=== PATIENT | female | born 1965 | race Caucasian/White ===

== ENCOUNTER 2018-11-10 09:30 | Inpatient (IN) | payer OTHER, SELFPAY ==
[2018-11-10] VITALS (14 sets, daily range): BP systolic 96–126; BP diastolic 53–77; PULSE 87–125; RESP 16–21; TEMP 36.4–38.1; O2SAT 95–109; BMI 32.4
--- NOTE | 2018-11-10 | PATH_ITS ---
[facility] Accession Number: [id number] . 01 Material submitted: . appendix - APPENDIX . 02 Diagnosis: Appendix, Appendectomy: Acute suppurative appendicitis with serositis. No evidence of dysplasia or malignancy. [facility] . 02 Electronically signed: . Olga Erazo MD, Pathologist NPI- [id number] . 01 Gross description: . Received in formalin, labeled appendix, is an appendix in two pieces (length-6.8 cm, diameter-up to 0.9 cm) with sánchez-pink smooth shiny partially exudate-covered serosa and attached mesoappendix (up to 1.6 cm thick). The resection margin is received stapled. The lumen contains pale sánchez solid-soft material. The wall is up to 0.4 cm thick. No nodules, masses or lesions are identified. The resection margin is inked black. Section code: (A1) resection margin en face and three additional serial sections; (A2) one-half of the bivalved tip. ([id number]) /MRV . 02 Pathologist provided ICD-10: K35.80 . 02 CPT . 057472 Performed at: 01 [facility] [address], [place], [place] [id number] MD Chuy Figueroa MD Phone: [phone] Performed at: 02 [facility] [address] [place], [place] [id number] MD Olga Erazo MD Phone: [phone]
--- NOTE | 2018-11-10 10:11 | ED_ITS ---
HPI - Abdominal Pain General Chief Complaint: Abdominal Pain Stated Complaint: Pain in rt side and groin Time Seen by Provider: 11/10/18 09:48 Source: patient Mode of arrival: ambulatory Limitations: no limitations History of Present Illness HPI narrative: Patient complains of low abdominal pain which is worsened since yesterday and has localized to the right lower quadrant. Patient denies nausea or vomiting. She states that she does not sleep well last night because of the discomfort. She states she thinks she should be hungry, but does not feel an urge to eat, because of the pain. No fevers or chills. No dysuria. No hematuria. No back pain. Patient has no history of any surgeries on her abdomen. No history of kidney stones. Patient denies any chest symptoms. No sore throat. No other complaints at this time. Related Data Home Medications Medication Instructions Recorded Confirmed multivitamin 1 tab PO DAILY 11/10/18 11/10/18 phentermine 30 mg PO DAILY 11/10/18 11/10/18 Allergies Allergy/AdvReac Type Severity Reaction Status Date / Time No Known Drug Allergies Allergy Verified 11/10/18 09:46 Review of Systems Constitutional Denies chills, Denies fever(s), Denies lethargy and Denies weakness Eyes Denies change in vision, Denies eye discharge, Denies irritation and Denies loss of vision ENT Ears, Nose, Mouth, and Throat: Denies change in voice, Denies neck pain and Denies sore throat Cardiovascular Denies chest pain, Denies irregular heart rhythm, Denies lightheadedness, Denies palpitations, Denies dyspnea, Denies dyspnea on exertion and Denies orthopnea Respiratory Denies cough, Denies dyspnea, Denies dyspnea on exertion and Denies wheezing Gastrointestinal Gastrointestinal: Reports abdominal pain Genitourinary Denies hematuria, Denies flank pain, Denies urinary incontinence and Denies urinary urgency Musculoskeletal Denies neck pain Integumentary/Breasts Denies pruritus, Denies erythema, Denies rash and Denies wounds Neurologic Denies confusion, Denies loss of vision and Denies weakness Psychiatric Denies anxiety, Denies confusion, Denies depression, Denies homicidal ideation and Denies suicidal ideation Endocrine Denies palpitations Hematologic/Lymphatic Denies easy bruising Allergic/Immunologic Denies wheezing [facility] Medical History (Updated 11/10/18 @ 13:02 by Jesus Manuel Mckay MD) Healthy adult (Acute) Obesity (Acute) Surgical History No pertinent past surgical history (Acute) Social History household members: spouse Smoking Status: Never smoker alcohol intake: never Social History household members: spouse Smoking Status: Never smoker alcohol intake: never Exam Initial Vital Signs Initial Vital Signs: Vital Signs Temperature 97.6 F 11/10/18 09:43 Pulse Rate 107 H 11/10/18 09:43 Respiratory Rate 19 11/10/18 09:43 Blood Pressure 126/77 11/10/18 09:43 Pulse Oximetry 100 11/10/18 09:43 Const General: cooperative and well developed Nutritional Appearance: well nourished Orientation: alert, awake, oriented x3 and not confused HENMT Head: normocephalic and atraumatic Ears: external ears normal Nose: external nose normal and No nasal discharge Face and sinus: face symmetric and No dry mucous membranes Mouth: oral mucosae normal and moist mucous membranes Teeth and gingiva: dentition normal Eyes General: appearance normal, both eyes and all related structures Eyelids: eyelids normal Conjunctivae: conjunctivae normal Sclera: sclerae normal Pupils: PERRL EOM: EOM intact bilaterally Neck Neck: normal visual inspection, trachea midline, No lymphadenopathy, No midline deformity and No JVD Lymphatic: No lymphedema Chest Chest: normal inspection of the chest Resp Effort & Inspection: normal respiratory effort, able to speak in complete senten ramesh, no respiratory distress and no use of accessory muscles Auscultation: clear to auscultation bilaterally, no rales, no rhonchi and no wheezes Cardio Rate: regular rate Rhythm: regular rhythm Heart Sounds: no click, no gallops, no murmurs and no rubs Pulses: normal peripheral pulses GI Inspection: non-distended Palpation: soft, no hepatosplenomegaly, No guarding, No pulsatile mass and tender (Significant, right lower quadrant; moderate suprapubic) Auscultation: normal bowel sounds Back/Spine/Pelvis Back: No CVA tenderness Cervical Spine: cervical ROM normal and No pain with cervical ROM Thoracic/Lumbar Spine: thoracic and lumbar spine normal to inspection Skin General: no rashes or lesions noted, No jaundice and No petechiae Neuro General: alert, oriented x3, gait normal and no focal motor deficits Speech: speech normal Extrem General: full ROM, no clubbing, cyanosis or edema, no pedal edema and no calf tenderness Psych Appearance: well kempt Mental Status: mental status grossly normal Attitude: cooperative Thought Content: normal and suicidality Judgment: judgment good Course Course Narrative: Patient was treated symptomatically with Toradol and IV fluids, and was worked up for her right lower quadrant abdominal pain. I suspected appendicitis, based on the patient's history and physical exam findings. Patient's white blood cell count was found to be mildly elevated. I sent her for a CT of the abdomen and pelvis, and this did show acute appendicitis. I spoke with surgery on-call, and he did agree to admit the patient to his service. Patient was given IV Rocephin and Flagyl in the emergency department at surgery's request. Preoperative studies including EKG were unremarkable. Patient was informed of her diagnosis and the plan for surgery admission, and was agreeable. Orders Ordered: ED Orders 11/10/18 12:25 XR chest 1V Urgent EKG-12 Lead Stat 11/10/18 19:51 Education, smoking cessation ONGOING 11/11/18 05:00 Basic Metabolic Panel Routine Magnesium Routine Acetaminophen (Tylenol) 975 mg PO Q6HR [facility] Last Admin: 11/10/18 20:30 Dose: 975 mg Gabapentin (Neurontin) 600 mg PO BEDTIME [facility] Last Admin: 11/10/18 20:30 Dose: 600 mg Heparin Sodium (Porcine) (Heparin) 5,000 unit SUBCUT Q8HR [facility] Lactated Ringer's (Lactated Ringers) 1,000 mls @ 100 mls/hr IV CONT [facility]ACQUI Last Admin: 11/10/18 20:29 Dose: 100 mls/hr Ceftriaxone Sodium/Dextrose (Rocephin) 2 gm in 50 mls @ 100 mls/hr IV Q24H [facility]ACQU[facility] Metronidazole (Flagyl) 500 mg in 100 mls @ 100 mls/hr IV Q8H [facility] Last Admin: 11/10/18 20:30 Dose: 100 mls/hr Lactobacillus Acidophilus (Bacid Caplet) 1 each PO TIDWM JACQUI Morphine Sulfate (Morphine) 4 mg IV Q4HR PRN PRN Reason: Pain, Severe (7-10) Ondansetron HCl (Zofran) 4 mg IV Q8HR PRN PRN Reason: Nausea And Vomiting Oxycodone HCl (Percolone) 5 mg PO Q4HR PRN PRN Reason: Pain, Moderate (4-6) Oxycodone HCl (Percolone) 10 mg PO Q4HR PRN PRN Reason: Pain, Severe (7-10) Polyethylene Glycol (Miralax) 17 gm PO DAILY JAC[facility]I Discontinued Medications Bupivacaine HCl/Epinephrine Bitart (Sensorcaine 0.25% W/ Epi (Pf)) 30 ml INJ NOW ONE Stop: 11/10/18 17:17 Last Admin: 11/10/18 17:18 Dose: 30 ml Fentanyl (Sublimaze) 50 mcg IV Q5MIN PRN PRN Reason: Pain, Moderate (4-6) Hydromorphone HCl (Dilaudid) 0.5 mg IV Q5MIN PRN PRN Reason: Pain, Moderate (4-6) Sodium Chloride (Normal Saline 0.9%) 1,000 mls @ 1,000 mls/hr IV BOLUS ONE Stop: 11/10/18 10:47 Last Infusion: 11/10/18 12:25 Dose: 0 mls/hr Admin: 11/10/18 10:40 Dose: 1,000 mls/hr Metronidazole (Flagyl) 500 mg in 100 mls @ 100 mls/hr IV NOW ONE Stop: 11/10/18 13:24 Last Infusion: 11/10/18 14:49 Dose: 0 mls/hr Admin: 11/10/18 13:00 Dose: 100 mls/hr Ceftriaxone Sodium/Dextrose (Rocephin) 2 gm in 50 mls @ 100 mls/hr IV NOW ONE Stop: 11/10/18 12:59 Last Infusion: 11/10/18 14:08 Dose: 0 mls/hr Admin: 11/10/18 13:01 Dose: 100 mls/hr Sodium Chloride (Normal Saline 0.9%) 1,000 mls @ 1,000 mls/hr IV BOLUS ONE Stop: 11/10/18 15:20 Last Infusion: 11/10/18 15:10 Dose: 0 mls/hr Admin: 11/10/18 14:22 Dose: 1,000 mls/hr Lactated Ringer's (Lactated Ringers) 1,000 mls @ 42 mls/hr IV CONT JACQUI Last Infusion: 11/10/18 18:19 Dose: 0 mls/hr Admin: 11/10/18 16:07 Dose: 42 mls/hr Ketorolac Tromethamine (Toradol) 30 mg IV NOW ONE Stop: 11/10/18 09:49 Last Admin: 11/10/18 10:40 Dose: 30 mg Lorazepam (Ativan) 0.25 mg IV NOW PRN PRN Reason: Anxiety Metoclopramide HCl (Reglan) 10 mg IV NOW PRN PRN Reason: Nausea And Vomiting Morphine Sulfate (Morphine) 2 mg IV NOW ONE Stop: 11/10/18 14:22 Last Admin: 11/10/18 14:22 Dose: 2 mg Ondansetron HCl (Zofran) 4 mg IV NOW ONE Stop: 11/10/18 09:49 Last Admin: 11/10/18 10:41 Dose: 4 mg Ondansetron HCl (Zofran) 4 mg IV NOW PRN PRN Reason: Nausea And Vomiting Oxycodone/Acetaminophen (Percocet 5/325) 1 tab PO Q30MIN PRN PRN Reason: Mild or moderate pain Vital Signs - 8 hr 11/10/18 13:15 11/10/18 14:50 11/10/18 15:35 Temperature 100.6 F H 99.3 F Pulse Rate 120 H 125 H 119 H Respiratory Rate 20 20 18 Blood Pressure 110/66 Blood Pressure [Right Arm] 103/59 L 104/56 L Pulse Oximetry 99 100 100 11/10/18 18:04 11/10/18 18:09 11/10/18 18:14 Temperature 98.7 F Pulse Rate 109 H 111 H 104 H Respiratory Rate 21 21 18 Blood Pressure 112/54 L 105/53 L 104/60 Blood Pressure [Right Arm] Pulse Oximetry 98 98 109 H 11/10/18 18:20 11/10/18 18:35 11/10/18 19:35 Temperature 98.1 F Pulse Rate 103 H 101 H 97 H Respiratory Rate 20 16 17 Blood Pressure 105/62 117/66 105/62 Blood Pressure [Right Arm] Pulse Oximetry 99 98 95 11/10/18 20:00 Temperature 98.1 F Pulse Rate 99 H Respiratory Rate 16 Blood Pressure 106/62 Blood Pressure [Right Arm] Pulse Oximetry 95 MDM - Abdominal Pain Medical Records Attestation: I reviewed the patient's medical records. Lab Data Attestation: I reviewed the patient's lab results. Result diagrams: 11/10/18 10:21 11/10/18 10:21 Lab Results 11/10/18 11/10/18 Range/Units 10:21 10:21 WBC 13.2 H (4.5-11.0) X10^3/uL RBC 4.59 (4.0-5.2) X10^6/uL Hgb 13.3 (12.0-16.0) g/dL Hct 39.1 (36-46) % MCV 85.2 (80-100) fL MCH 29.0 (26-34) PG MCHC 34.0 (30-36) % RDW 13.3 (11.6-14.8) % Plt Count 182 (150-400) X10^3/uL Neut % (Auto) 83.0 H (50-75) % Lymph % (Auto) 7.6 L (25-40) % [place] % (Auto) 8.9 (3-14) % Eos % (Auto) 0.0 L (2-4) % Baso % (Auto) 0.5 (0-2) % Neut # (Auto) 60389 H (3080-8081) /uL Lymph # (Auto) 1000 L (0743-8273) /uL [place] # (Auto) 1200 H (0-900) /uL Eos # (Auto) 0 (0-450) /uL Baso # (Auto) 100 (0-100) /uL Sodium 134 L (137-145) mmol/L Potassium 3.5 (3.4-5.1) mmol/L Chloride 99 (98-107) mmol/L Carbon Dioxide 28 (22-32) mmol/L BUN 9 (7-17) mg/dL Creatinine 0.60 (0.52-1.04) mg/dL Estimated GFR > 60.0 (>60) mL/min BUN/Creatinine Ratio 15.0 (6-22) Glucose 113 H (70-100) mg/dL Calcium 8.8 (8.4-10.2) mg/dL Total Bilirubin 1.0 (0.2-1.3) mg/dL AST 19 (14-36) IU/L ALT 11 (9-52) IU/L Alkaline Phosphatase 33 L (38-126) U/L Total Protein 6.9 (6.3-8.2) g/dL Albumin 4.0 (3.5-5.0) g/dL Globulin 2.9 (1.7-4.1) g/dL Albumin/Globulin Ratio 1.4 (1.0-2.8) Imaging Data CT scan - abdomen: Radiologist's impression: PROCEDURE: CT ABDOMEN PELVIS W CON INDICATIONS: RIGHT LOWER PAIN TECHNIQUE: After the administration of intravenous contrast, 5 mm thick sections acquired from the diaphragm to the symphysis. 5 mm coronal and sagittal reformats were acquired. For radiation dose reduction, the following was used: automated exposure control, adjustment of mA and/or kV according to patient size. COMPARISON: None. FINDINGS: Image quality: Excellent. ABDOMEN: Lung bases: Lung bases are clear. Heart size is normal. Solid organs: Liver is normal in size and enhancement. Gallbladder wall is mildly thickened and hyperemic. Biliary system is non dilated. Pancreas enhances normally. Spleen is normal in size and enhancement. No adrenal nodules. Kidneys demonstrate normal size and enhancement, without hydronephrosis. Peritoneum and bowel: The stomach is within normal limits. There are multiple mildly distended and thickened loops of bowel within the right lower quadrant adjacent to the ileocecal junction. The appendix is distended and fluid-filled and demonstrates moderate surrounding fat stranding. Colon is decompressed. Diverticulosis of the descending and sigmoid colon is present. No pneumoperitoneum. Small amount of free fluid within the pelvis. Nodes and vessels: No retroperitoneal or mesenteric adenopathy by size criteria. Aorta and inferior vena cava are normal in size. Miscellaneous: No ventral hernias. PELVIS: Genitourinary: Bladder wall thickness is normal. Miscellaneous: No inguinal hernias or adenopathy. Bones: No suspicious bony lesions. No vertebral body compression fractures. IMPRESSION: 1. Acute appendicitis. Small amount of free fluid within the pelvis, which may indicate rupture. 2. Mildly thickened adjacent small bowel loops, likely representing secondary/ reactive enteritis. 3. Mildly thickened gallbladder wall. If there is clinical evidence for cholecy stitis, this could be further assessed with ultrasound. 4. Findings discussed with Dr. Vilma Kwon on 5.3.19 at 1145 hrs. Dictated by: Joseph Courtney M.D. on 11/10/2018 at 11:44 Approved by: Joseph Courtney M.D. on 11/10/2018 at 11:47 Chest x-ray: Radiologist's impression: PROCEDURE: XR CHEST 1V INDICATIONS: pre-op TECHNIQUE: One view of the chest was acquired. COMPARISON: None. FINDINGS: Surgical changes and devices: None. Lungs and pleura: Lungs are clear. No pleural effusions or pneumothorax. Mediastinum: Mediastinal contours appear normal. Heart size is normal. Bones and chest wall: No suspicious bony lesions. Overlying soft tissues appear unremarkable. IMPRESSION: No acute disease Dictated by: Humza Yancey M.D. on 11/10/2018 at 12:05 Approved by: Humza Yancey M.D. on 11/10/2018 at 12:05 ECG Data Attestation: I personally reviewed and interpreted this ECG as follows: (See be low) Interpretation: Twelve lead EKG performed November 10, 2018 at 12:49 p.m., as follows: Regular intra-ocular rhythm with a rate of 113 beats per minute KS interval 132 millisecond QRS duration 93 millisecond QTC interval [address] segment elevation or depression No ectopy Interpretation: Sinus tachycardia; nonspecific ST T wave abnormalities; no sign s of acute ischemia; abnormal rhythm EKG as interpreted by ED MD. Discharge Plan Departure Patient Disposition: Admitted as Observation Clinical Impression: Acute appendicitis Qualifiers: Acute appendicitis type: with localized peritonitis Appendicitis gangrene presence: without gangrene Appendicitis perforation presence: unspecified whether perforation present Appendicitis abscess presence: without abscess Qualified Code(s): K35.30 - Acute appendicitis with localized peritonitis, without perforation or gangrene Discharge Date/Time: 11/10/18 15:12 Interventions: ED Discharge Assessment Last Done: 11/10/18 15:12 Admit Date/Time: 11/10/18 12:15 Admit Provider: Jesus Manuel Mckay
[2018-11-10 10:28] LABS: Add Manual Diff / Slide Review NO; Basophils Absolute Auto 100 /uL (0-100); Basophils Percent Auto 0.5 % (0-2); Eosinophils Absolute Auto 0 /uL (0-450); Hematocrit 39.1 % (36-46); Hemoglobin 13.3 g/dL (12.0-16.0); Lymphocytes Absolute Auto 1000 /uL (1100-4500); Lymphocytes Percent Auto 7.6 % (25-40); Mean Corpuscular Volume 85.2 fL (80-100); Monocytes Absolute Auto 1200 /uL (0-900); Monocytes Percent Auto 8.9 % (3-14); Neutrophils Absolute Auto 11000 /uL (1500-7000); Platelet Count 182 X10^3/uL (150-400); Red Blood Cell Count 4.59 X10^6/uL (4.0-5.2); Red Cell Distribution Width 13.3 % (11.6-14.8); White Blood Cell Count 13.2 X10^3/uL (4.5-11.0)
[2018-11-10 10:40] LABS: Alanine Aminotransferase 11 IU/L (9-52); Albumin Globulin Ratio 1.4 (1.0-2.8); Alkaline Phosphatase 33 U/L (38-126); Aspartate Aminotransferase 19 IU/L (14-36); Blood Urea Nitrogen 9 mg/dL (7-17); Calcium 8.8 mg/dL (8.4-10.2); Carbon Dioxide 28 mmol/L (22-32); Chloride 99 mmol/L (98-107); Estimated Glomerular Filt Rate > 60.0 mL/min (>60); Globulin 2.9 g/dL (1.7-4.1); Glucose 113 mg/dL (70-100); HEMOLYSIS 33 (0-50); Potassium 3.5 mmol/L (3.4-5.1); Sodium 134 mmol/L (137-145); Total Protein 6.9 g/dL (6.3-8.2)
[2018-11-10] MEDS: SODIUM CHLORIDE 0.9% 1,000 ML 1000 ML IV ×2 (10:40→14:22)
[2018-11-10] MEDS: KETOROLAC 60 MG/2 ML VIAL 30 MG IV (10:40)
[2018-11-10] MEDS: ONDANSETRON 4 MG/2 ML INJ IV (10:41)
--- NOTE | 2018-11-10 11:18 | DI.CT.S_ITS ---
PROCEDURE: CT ABDOMEN PELVIS W CON INDICATIONS: RIGHT LOWER PAIN TECHNIQUE: After the administration of intravenous contrast, 5 mm thick sections acquired from the diaphragm to the symphysis. 5 mm coronal and sagittal reformats were acquired. For radiation dose reduction, the following was used: automated exposure control, adjustment of mA and/or kV according to patient size. COMPARISON: None. FINDINGS: Image quality: Excellent. ABDOMEN: Lung bases: Lung bases are clear. Heart size is normal. Solid organs: Liver is normal in size and enhancement. Gallbladder wall is mildly thickened and hyperemic. Biliary system is non dilated. Pancreas enhances normally. Spleen is normal in size and enhancement. No adrenal nodules. Kidneys demonstrate normal size and enhancement, without hydronephrosis. Peritoneum and bowel: The stomach is within normal limits. There are multiple mildly distended and thickened loops of bowel within the right lower quadrant adjacent to the ileocecal junction. The appendix is distended and fluid-filled and demonstrates moderate surrounding fat stranding. Colon is decompressed. Diverticulosis of the descending and sigmoid colon is present. No pneumoperitoneum. Small amount of free fluid within the pelvis. Nodes and vessels: No retroperitoneal or mesenteric adenopathy by size criteria. Aorta and inferior vena cava are normal in size. Miscellaneous: No ventral hernias. PELVIS: Genitourinary: Bladder wall thickness is normal. Miscellaneous: No inguinal hernias or adenopathy. Bones: No suspicious bony lesions. No vertebral body compression fractures. IMPRESSION: 1. Acute appendicitis. Small amount of free fluid within the pelvis, which may indicate rupture. 2. Mildly thickened adjacent small bowel loops, likely representing secondary/reactive enteritis. 3. Mildly thickened gallbladder wall. If there is clinical evidence for cholecystitis, this could be further assessed with ultrasound. 4. Findings discussed with Dr. Vilma Kwon on 10.14.18 at 1145 hrs. Dictated by: Joseph Courtney M.D. on 11/10/2018 at 11:44 Approved by: Joseph Courtney M.D. on 11/10/2018 at 11:47
--- NOTE | 2018-11-10 12:25 | DI.RAD.S_ITS ---
PROCEDURE: XR CHEST 1V INDICATIONS: pre-op TECHNIQUE: One view of the chest was acquired. COMPARISON: None. FINDINGS: Surgical changes and devices: None. Lungs and pleura: Lungs are clear. No pleural effusions or pneumothorax. Mediastinum: Mediastinal contours appear normal. Heart size is normal. Bones and chest wall: No suspicious bony lesions. Overlying soft tissues appear unremarkable. IMPRESSION: No acute disease Dictated by: Humza Yancey M.D. on 11/10/2018 at 12:05 Approved by: Humza Yancey M.D. on 11/10/2018 at 12:05
[2018-11-10] MEDS: metroNIDAZOLE 500 MG/100 ML PIGGYBACK 100 MG IV ×2 (13:00→20:30)
[2018-11-10] MEDS: CEFTRIAXONE 2 GM/50 ML FROZ.PIGGY IV (13:01)
--- NOTE | 2018-11-10 13:03 | P.HP_ITS ---
History of Present Illness Date Patient Seen: 11/10/18 Time Patient Seen: 13:00 Chief complaint: Pain in rt side and groin Narrative: 53-year-old generally healthy female presents to the emergency department with progressive right lower quadrant pain. Pain began yesterday afternoon with associated anorexia and fatigue. Initially the pain felt crampy and generalized but later moved to the right lower quadrant. The pain waxed and waned in a colicky fashion was worsened with movement and improved by lying completely still. Given its persistence this morning patient elected to present to the emergency department. She has not had nausea or vomiting. Patient has never had a colonoscopy No family history of colon or rectal cancer Patient History Medical History (Updated 11/10/18 @ 13:02 by Jesus Manuel Mckay MD) Healthy adult (Acute) Obesity (Acute) Surgical History No pertinent past surgical history (Acute) Social History Smoking Status: Never smoker Family & Social History Safety & Behavioral: Feels Safe in Current Yes Environment Been Physically Hurt or No Threatened By a Person Tobacco & Substance use: Smoking Status Never smoker alcohol intake frequency holiday/special occasion Substance Use Type does not use Meds Home Medications Medication Instructions Recorded Confirmed Type multivitamin 1 tab PO DAILY 11/10/18 11/10/18 History phentermine 30 mg PO DAILY 11/10/18 11/10/18 History Allergies Allergy/AdvReac Type Severity Reaction Status Date / Time No Known Drug Allergies Allergy Verified 11/10/18 09:46 Review of Systems Constitutional Constitutional: Denies fever(s) Eyes Eyes: Denies bulging eyes ENT Ears, Nose, Mouth, and Throat: No lip swelling Cardiovascular Cardiovascular: Denies generalize swelling Respiratory Respiratory: Denies stridor Gastrointestinal Gastrointestinal: Denies coffee ground emesis Musculoskeletal Musculoskeletal: Denies loss of height Integumentary/Breasts Skin/Breast: Denies wounds Neurologic Neurologic: Denies abnormal speech and Denies confusion Psychiatric Psychiatric: Denies confusion Endocrine Endocrine: Denies deepening of the voice Hematologic/Lymphatic Hematologic/Lymphatic: Denies lymphadenopathy Allergic/Immunologic Allergic/Immunologic: Denies lip swelling Exam Vital Signs (past 8 hours): - 11/10/18 09:43 11/10/18 11:57 Temperature 97.6 F Pulse Rate 107 H 107 H Respiratory Rate 19 16 Blood Pressure 126/77 Blood Pressure [Right Arm] 118/66 Pulse Oximetry 100 99 Oxygen Delivery Method Room Air Const General: cooperative and healthy appearing Orientation: alert [facility] Head: normal to inspection Nose: nares normal Mouth: oral mucosae normal and lip normal Eyes Eyelids: eyelids normal Conjunctivae: conjunctivae normal Sclera: sclerae normal Neck Neck: supple and other (No thyromegally) Chest Chest: other (LCTAB , regular respiratory effort) Cardio Heart Sounds: S1 normal, S2 normal, no gallops, no murmurs and no rubs GI Other: Abdomen is without surgical incisions, mildly rotund. Hypoactive bowel sounds, dull to percussion. Tender to percussion over the right lower quadrant. No hepatosplenomegaly. She is quite tender over McBurney's point. No masses. There is an equivocal Rovsing sign, negative bed shake test, minimal reflexive in guarding in the right lower quadrant Skin General: no rashes or lesions noted Neuro General: alert and awake Psych Appearance: grossly normal Affect: normal affect Objective Labs Result Diagrams: 11/10/18 10:21 11/10/18 10:21 Labs: Laboratory Results - last 24 hr 11/10/18 11/10/18 10:21 10:21 WBC 13.2 H RBC 4.59 Hgb 13.3 Hct 39.1 MCV 85.2 MCH 29.0 MCHC 34.0 RDW 13.3 Plt Count 182 Neut % (Auto) 83.0 H Lymph % (Auto) 7.6 L [place] % (Auto) 8.9 Eos % (Auto) 0.0 L Baso % (Auto) 0.5 Neut # (Auto) 99108 H Lymph # (Auto) 1000 L [place] # (Auto) 1200 H Eos # (Auto) 0 Baso # (Auto) 100 Sodium 134 L Potassium 3.5 Chloride 99 Carbon Dioxide 28 BUN 9 Creatinine 0.60 Estimated GFR > 60.0 BUN/Creatinine Ratio 15.0 Glucose 113 H Calcium 8.8 Total Bilirubin 1.0 AST 19 ALT 11 Alkaline Phosphatase 33 L Total Protein 6.9 Albumin 4.0 Globulin 2.9 Albumin/Globulin Ratio 1.4 Assessment & Plan Assessment & Plan narrative: 53-year-old woman presents with less than 24 hours of progressive pain now localized to the right lower quadrant with a mild leukocytosis to [address] demonstrated a dilated inflamed appendix with local fat stranding diagnostic of acute appendicitis. Her appendix is retrocecal. I discussed operative versus non operative management of acute appendicitis with patient. Given that she is having tachycardia and chills, i.e. systemic response to her infection think it is prudent to obtain source control. In addition she does not like the possibility of recurrence if she was treated non operatively. Plan: NPO 2 g ceftriaxone with 500 metronidazole both IV Proceed to the operating room this afternoon for laparoscopic appendectomy, possible conversion to open If non perforated May discharged from PACU
[2018-11-10] MEDS: MORPHINE 2 MG/ML INJ IV (14:22)
--- NOTE | 2018-11-10 15:44 | PC.ADMIT ---
[address] Admission Note: The patient,Svitlana Lynch,53 y/o, was given written information regarding hospital policies, unit procedures and contact persons. Patient's smoking status: Never smoker. Vital Signs - 8 hr 11/10/18 09:43 11/10/18 11:57 11/10/18 13:15 Temperature 97.6 F Pulse Rate 107 H 107 H 120 H Respiratory Rate 19 16 20 Blood Pressure 126/77 Blood Pressure [Right Arm] 118/66 103/59 L Pulse Oximetry 100 99 99 11/10/18 14:50 Temperature 100.6 F H Pulse Rate 125 H Respiratory Rate 20 Blood Pressure Blood Pressure [Right Arm] 104/56 L Pulse Oximetry 100 Patient up from ED via wheelchair. Pt able to ambulate to ac bed, gait steady. Pt A&O, calm and cooperative.
[2018-11-10] MEDS: LACTATED RINGERS 1,000 ML 42 ML IV (16:07)
--- NOTE | 2018-11-10 16:54 | SUR.OPER ---
Supine on padded OR bed, head on pillow, left arm padded and tucked at side, legs uncrossed, safety belt at thigh, tape over blanket over lower legs .
[2018-11-10] MEDS: BUPIVACAINE 0.25% W/ EPI 30 ML VIAL INJ (17:18)
--- NOTE | 2018-11-10 18:15 | SUR.PHASEI ---
stable pacu stay. report called.
--- NOTE | 2018-11-10 18:57 | SUR.PHASEI ---
Ptb became nauseated upon entry to room, quease ease obtained and left in room and cold wash cloth placed on head. Pt stated she felt better. Pt left in stable condition.
--- NOTE | 2018-11-10 20:05 | PM.OP.1 ---
Operative Date/Time/Diagnoses Date of procedure: 11/10/18 Time of procedure: 18:00 Pre-op diagnosis: Acute appendicitis Post-op diagnosis: other (Acute perforated appendicitis with gross abdominal contamination) Procedure & Clinicians Procedure: Laparoscopic appendectomy, laparoscopic abdominal washout Same procedure as scheduled: Yes Indications: 53-year-old healthy woman presented to the emergency department with right lower quadrant pain, leukocytosis, and tachycardia. CT imaging demonstrated a retrocecal inflamed appendix. Surgeon: Jesus Manuel Mckay Anesthesia Type: General Operative Notes Findings: Perforated acute appendicitis -fecal contamination within the pelvis, along the right pericolic gutter and up to Morison's pouch. Status post 4 L of irrigation washed Closure Type: primary Specimen(s): other (Vernifirm appendix) Estimated Blood Loss (mL): 10 Procedure in detail: Patient was brought to the operating room she was intubated without incident a time-out was completed, she was prepped and draped in usual sterile fashion. Entry into the abdomen was performed using Brito cutdown technique a curvilinear incision was carried just inside the superior umbilical crown. The subcutaneous tissue was spread and S retractors were used to dissected down to the level of the umbilical stalk. The umbilical stalk was grasped with a clamp and elevated. Two retention sutures were then placed on the linea alba just superior to it. The sutures were brought tot in linea alba was split with a scalpel. A blunt clamp facilitated entry into peritoneum an S retractor confirmed intra-abdominal placement and was used to guide placement of the Brito trocar. Abdomen was insufflated without incident 2 5 mm ports were then placed 1 in the left lower quadrant and the other in the suprapubic area being careful to avoid the dome of the bladder the patient was then placed in Trendelenburg position with right side up. Upon inspection of the abdomen there was clear of fecal contamination in the vicinity of the appendix with adjacent inflammation the cecum was identified several loops of adherent overlying bowel within the right lower quadrant was teased off the cecum. In the cecum was then rotated medially bluntly dissecting some filmy lateral attachments. In doing so the appendix became visualized the tip was identified and then using blunt dissection the tip was freed from its retrocecal attachments to the cecum. The appendix was markedly inflamed. A window was then made using a Roxane grasper in the mesoappendix. This mesoappendix portion was then divided with a vascular load stapler. The appendix itself was freed some filmy adhesions to Naman's veil. A 3.5 mm stapler load was then used to divide the appendix off the cecum taking with it a small perhaps 1-2 mm cuff of cecum. Several clips were utilized to control a limited amount of ooze from the staple lines. At this point the appendix was placed in Endo-Catch bag and removed from the abdomen via the epigastric port. then proceeded to perform an extensive washout using 4 L of fluid to washout the pericolic gutter the right lower quadrant the pelvis including the pouch of Romero as well as contamination over the right lobe of the liver. This proceeded until the effluent returned clear. Hemostasis was confirmed 19 Nepali Rm drains were then placed 1 into the pelvis with the tip of this drains near the appendiceal staple line and the other along the right pericolic gutter up to the level of Morison's pouch. Drains were then sutured in place ports withdrawn under direct visualization. The umbilical port site was then closed using a [id number] 0 Vicryl suture and tied together the retention sutures. Skin was irrigated copiously and then closed using monofilament absorbable suture in subcuticular Please assign a 22 modifier given the perforated nature of the case, an additional 30 minutes and multiple additional laparoscopic maneuvers required for abdominal wash out Dressings were applied the patient was extubated and brought to PACU without incident Complications: none Condition: stable Disposition: PACU Plan for aftercare: Admit to floor
[2018-11-10] MEDS: LACTATED RINGERS 1,000 ML 100 ML IV (20:29)
[2018-11-10] MEDS: HEPARIN 5,000 UNIT/ML VIAL 5000 UNIT SUBCUT (21:27)
[2018-11-11] VITALS (8 sets, daily range): BP systolic 97–113; BP diastolic 55–68; PULSE 86–94; RESP 16–18; TEMP 35.6–37.1; O2SAT 95–100
[2018-11-11] MEDS: metroNIDAZOLE 500 MG/100 ML PIGGYBACK 100 MG IV ×3 (04:02→20:56)
[2018-11-11 06:04] LABS: Blood Urea Nitrogen 9 mg/dL (7-17); Carbon Dioxide 25 mmol/L (22-32); Chloride 105 mmol/L (98-107); Estimated Glomerular Filt Rate > 60.0 mL/min (>60); Glucose 123 mg/dL (70-100); HEMOLYSIS < 15 (0-50); Magnesium 1.7 mg/dL (1.6-2.3); Potassium 3.7 mmol/L (3.4-5.1); Sodium 136 mmol/L (137-145)
[2018-11-11] MEDS: HEPARIN 5,000 UNIT/ML VIAL 5000 UNIT SUBCUT ×3 (06:20→21:11)
[2018-11-11] MEDS: LACTATED RINGERS 1,000 ML 100 ML IV ×2 (08:42→23:46)
[2018-11-11] MEDS: ACETAMINOPHEN 325 MG TABLET 975 MG PO ×3 (08:42→23:46)
[2018-11-11] MEDS: POLYETHYLENE GLYCOL 3350 17 GM POWD.PACK PO (08:42)
[2018-11-11] MEDS: LACTOBACILLUS ACIDOPHILUS TABLET 1 EACH PO ×3 (08:43→16:58)
--- NOTE | 2018-11-11 08:48 | PM.PN.1 ---
Subjective Date Patient Seen: 11/11/18 Time Patient Seen: 08:48 Interval history: Feeling well this am - minimal pain, no flatus, no bowel movement. Feeling much better post surgery. Not yet hungery No thirsty Tolerating small amount of liquids Exam Vital Signs (past 8 hours): - 11/11/18 04:18 Temperature 97.8 F Pulse Rate 86 Respiratory Rate 18 Blood Pressure 97/55 L Pulse Oximetry 99 Oxygen Delivery Method Room Air Oxygen Flow Rate 0 Narrative Exam Narrative: Well appearing, comfortably breathing easily on RA Strong radial pulse Abd soft, minimally distended, dressings dry, appropreately tender Pelvic drain cloudy 45, para hepatic drain serrous 30 periphery warm Objective Labs Result Diagrams: 11/10/18 10:21 11/11/18 05:32 Labs: Laboratory Results - last 24 hr 11/10/18 11/10/18 11/11/18 10:21 10:21 05:32 WBC 13.2 H RBC 4.59 Hgb 13.3 Hct 39.1 MCV 85.2 MCH 29.0 MCHC 34.0 RDW 13.3 Plt Count 182 Neut % (Auto) 83.0 H Lymph % (Auto) 7.6 L [place] % (Auto) 8.9 Eos % (Auto) 0.0 L Baso % (Auto) 0.5 Neut # (Auto) 85428 H Lymph # (Auto) 1000 L Person # (Auto) 1200 H Eos # (Auto) 0 Baso # (Auto) 100 Sodium 134 L 136 L Potassium 3.5 3.7 Chloride 99 105 Carbon Dioxide 28 25 BUN 9 9 Creatinine 0.60 0.60 Estimated GFR > 60.0 > 60.0 BUN/Creatinine Ratio 15.0 15.0 Glucose 113 H 123 H Calcium 8.8 8.0 L Magnesium 1.7 Total Bilirubin 1.0 AST 19 ALT 11 Alkaline Phosphatase 33 L Total Protein 6.9 Albumin 4.0 Globulin 2.9 Albumin/Globulin Ratio 1.4 Assessment & Plan Assessment & Plan narrative: 53 yo woman POD1 s/p lap appy and abdominal washout for perforated acute appendicitis with extensive fecal contamination of R abdomen and pelvis. Doing well post op, early septic physiology now resolved. Plan: continue ceftriaxone and metronidazole until WBC normal and afebrile x 24hrs, CBC tomorrow Probiotic On multimodal pain control Abraham out this am Keeping drains Clears today - anticipate some degree of ileus Heparin sub Q Dr Geronimo kindly covering for weekend
--- NOTE | 2018-11-11 08:55 | P.PN_ITS ---
Subjective Date Patient Seen: 11/11/18 Time Patient Seen: 08:48 Interval history: Feeling well this am - minimal pain, no flatus, no bowel movement. Feeling much better post surgery. Not yet hungery No thirsty Tolerating small amount of liquids Exam Vital Signs (past 8 hours): - 11/11/18 04:18 Temperature 97.8 F Pulse Rate 86 Respiratory Rate 18 Blood Pressure 97/55 L Pulse Oximetry 99 Oxygen Delivery Method Room Air Oxygen Flow Rate 0 Narrative Exam Narrative: Well appearing, comfortably breathing easily on RA Strong radial pulse Abd soft, minimally distended, dressings dry, appropreately tender Pelvic drain cloudy 45, para hepatic drain serrous 30 periphery warm Objective Labs Result Diagrams: 11/10/18 10:21 11/11/18 05:32 Labs: Laboratory Results - last 24 hr 11/10/18 11/10/18 11/11/18 10:21 10:21 05:32 WBC 13.2 H RBC 4.59 Hgb 13.3 Hct 39.1 MCV 85.2 MCH 29.0 MCHC 34.0 RDW 13.3 Plt Count 182 Neut % (Auto) 83.0 H Lymph % (Auto) 7.6 L [place] % (Auto) 8.9 Eos % (Auto) 0.0 L Baso % (Auto) 0.5 Neut # (Auto) 36896 H Lymph # (Auto) 1000 L [place] # (Auto) 1200 H Eos # (Auto) 0 Baso # (Auto) 100 Sodium 134 L 136 L Potassium 3.5 3.7 Chloride 99 105 Carbon Dioxide 28 25 BUN 9 9 Creatinine 0.60 0.60 Estimated GFR > 60.0 > 60.0 BUN/Creatinine Ratio 15.0 15.0 Glucose 113 H 123 H Calcium 8.8 8.0 L Magnesium 1.7 Total Bilirubin 1.0 AST 19 ALT 11 Alkaline Phosphatase 33 L Total Protein 6.9 Albumin 4.0 Globulin 2.9 Albumin/Globulin Ratio 1.4 Assessment & Plan Assessment & Plan narrative: 53 yo woman POD1 s/p lap appy and abdominal washout for perforated acute appendicitis with extensive fecal contamination of R abdomen and pelvis. Doing well post op, early septic physiology now resolved. Plan: continue ceftriaxone and metronidazole until WBC normal and afebrile x 24hrs, CBC tomorrow Probiotic On multimodal pain control Abraham out this am Keeping drains Clears today - anticipate some degree of ileus Heparin sub Q Dr Geronimo kindly covering for weekend
[2018-11-11] MEDS: POTASSIUM CHLORIDE 20 MEQ/15 ML UDC 40 MEQ PO (09:40)
[2018-11-11] MEDS: MAGNESIUM SULFATE 4 GM/100 ML PIGGYBACK IV (09:41)
--- NOTE | 2018-11-11 11:50 | PC.NURSE ---
Addendum entered by Enid Trejo R.N. 11/11/18 15:21: Pts menendez catheter taken out at 1300. Pt has not voided yet. Passed onto pascale craft RN. Addendum entered by Enid Trejo R.N. 11/11/18 12:35: Drain L.abdomen added to i&O but then made inactive. 25cc output recorded but could not be taken off. So please disregard this. Pt had 25cc out of #2 drain and 25cc out of #1 drain. #2 drainage and #1 with sangenous. Addendum entered by Enid Trejo R.N. 11/11/18 12:27: Pt had a small 100cc emesis of yellow colored bile. Offered nausea medication but she refused. Did well with 1 person assist getting up into chair. She is comfortable sitting at this time. Will try some water later to see if she can tolerate. Pt did drink some apple juice prior and states that is what she think made her have emesis. Original Note: Assess- Pt is A&Ox3. Given tylenol and helpful for discomfort. Pt states that she was nauseous prior to administration of tylenol and that she feels better now. Menendez is going to be taken out shortly. Pt will also be getting up for lunch. Two PUNEET drains are putting out ss fluid and dressings are all cdi.
[2018-11-11] MEDS: CEFTRIAXONE 2 GM/50 ML FROZ.PIGGY IV (14:11)
--- NOTE | 2018-11-11 15:01 | CM.DANOTE ---
Discharge Planning/Care Management DCP: assessment: case received, EMR reviewed. Discussed case in Team Rounds. Pt is a 53 year old female who admitted yesterday afternoon to General Surgeons team: Dr. Jesus Manuel Mckay took pt to surgery: acute appendicitis. Post op diagnosis: Perforated appendix with fecal contamination spilling into R abdomen and pelvis. Payer: [facility] PCP: Boston Zayas. Per documentation: pt is employed by [employer]. Pt is on IV antibiotics, clear liquids and is expected to remain in the hospital for a few days. Dr. Geronimo will be following pt over the weekend. P: Will check in with pt as she recovers and follow for d/c issues and options. CM Discharge Assessment Start: 11/11/18 14:59 Freq: Status: Active Protocol: Document 11/11/18 14:59 ITV (Rec: 11/11/18 15:00 ITV [id number]) Discharge Planning Assessment Advance Directives? No History Provided By Patient Medical Record Prior Living Arrangements House Household Members spouse Is patient alert and oriented? Yes Review Status In Process Next Review Type Continued Stay Review
--- NOTE | 2018-11-11 17:58 | PC.NURSE ---
Addendum entered by Rafaela Dhillon R.N. 11/11/18 22:55: Difficulty electronically entering order for 30 mg iv toradol every 6 hours prn pain as per Dr. Geronimo's verified telephone order. Discussed with supervisor general, Ayla, and cardinal pharmacist. [facility] pharmacist to attempt to enter this order. Addendum entered by Rafaela Dhillon R.N. 11/11/18 21:57: Call to Dr. Geronimo to discuss pt's nausea with morphine and reluctance to accept other narcotic pain meds. Orders obtained and generated as per emar. Addendum entered by Rafaela Dhillon R.N. 11/11/18 21:48: Pt now back in bed and rates pain 8/10; increases with movement. Administered zofran first followed by 4 mg iv morphine very slow push. Pt admits to low grade nausea following this medication administration. Cool washcloth to face, fan to cool pt and pt does report nausea improves with eyes closed. Encouraged to rest and alert staff if nausea worsens. Pillow provided to splint abdomen. Family present @ bedside. BL calf scd's in place. Addendum entered by Rafaela Dhillon R.N. 11/11/18 18:04: Diminished breath sounds to BL bases. Encouraged deep breathing and abdominal splinting with rationale and instruction for both of these interventions. Provided pt with I.S. and encouraged use following teaching. Pt does report RUQ pain with deep inspiration. Discussed lap procedure with pt. Offered ice to abdomen and pt accepts. Original Note: Pt awake and alert sitting upright in recliner. Has voided without difficulty s/p menendez catheter removal. Discussed pain management with pt who states does not want to take opiates. Discussed options with pt and requested pt alert staff to what is needed/wanted. PUNEET x 2 compressed. Surgical and drain dressings to abdomen dry and intact. Denies nausea. Active bowel tones with soft abdomen and states passing little bit of flatus. Encouraged position changes, ambulation and rest to encourage bowel function.
[2018-11-11] MEDS: GABAPENTIN 600 MG TABLET PO (20:57)
[2018-11-11] MEDS: ONDANSETRON 4 MG/2 ML INJ IV (21:02)
[2018-11-11] MEDS: MORPHINE 4 MG/ML INJ IV (21:11)
[2018-11-11] MEDS: PROCHLORPERAZINE 10 MG/2 ML VIAL IV (23:46)
[2018-11-12] VITALS (10 sets, daily range): BP systolic 103–137; BP diastolic 63–86; PULSE 88–96; RESP 15–18; TEMP 36.4–37.1; O2SAT 96–100
[2018-11-12] MEDS: metroNIDAZOLE 500 MG/100 ML PIGGYBACK 100 MG IV ×3 (04:16→21:56)
[2018-11-12 05:31] LABS: Add Manual Diff / Slide Review NO; Basophils Absolute Auto 0 /uL (0-100); Basophils Percent Auto 0.4 % (0-2); Eosinophils Absolute Auto 100 /uL (0-450); Eosinophils Percent Auto 0.5 % (2-4); Hematocrit 31.5 % (36-46); Hemoglobin 10.8 g/dL (12.0-16.0); Lymphocytes Absolute Auto 1600 /uL (1100-4500); Lymphocytes Percent Auto 13.8 % (25-40); Mean Corpuscular HGB Conc 34.3 % (30-36); Mean Corpuscular Hemoglobin 29.3 PG (26-34); Mean Corpuscular Volume 85.4 fL (80-100); Monocytes Absolute Auto 700 /uL (0-900); Monocytes Percent Auto 6.2 % (3-14); Neutrophils Absolute Auto 8900 /uL (1500-7000); Neutrophils Percent Auto 79.1 % (50-75); Platelet Count 153 X10^3/uL (150-400); Red Blood Cell Count 3.68 X10^6/uL (4.0-5.2); Red Cell Distribution Width 13.9 % (11.6-14.8); White Blood Cell Count 11.2 X10^3/uL (4.5-11.0)
[2018-11-12 05:43] LABS: BUN Creatinine Ratio 18.3 (6-22); Blood Urea Nitrogen 11 mg/dL (7-17); Calcium 7.9 mg/dL (8.4-10.2); Carbon Dioxide 27 mmol/L (22-32); Chloride 108 mmol/L (98-107); Estimated Glomerular Filt Rate > 60.0 mL/min (>60); Glucose 96 mg/dL (70-100); HEMOLYSIS < 15 (0-50); Magnesium 2.1 mg/dL (1.6-2.3); Potassium 3.7 mmol/L (3.4-5.1); Sodium 139 mmol/L (137-145)
[2018-11-12] MEDS: ACETAMINOPHEN 325 MG TABLET 975 MG PO ×2 (06:02→11:11)
[2018-11-12] MEDS: HEPARIN 5,000 UNIT/ML VIAL 5000 UNIT SUBCUT ×3 (06:02→21:57)
[2018-11-12] MEDS: POLYETHYLENE GLYCOL 3350 17 GM POWD.PACK PO (09:12)
[2018-11-12] MEDS: LACTOBACILLUS ACIDOPHILUS TABLET 1 EACH PO ×3 (09:12→17:10)
[2018-11-12] MEDS: CEFTRIAXONE 2 GM/50 ML FROZ.PIGGY IV (12:58)
[2018-11-12] MEDS: LACTATED RINGERS 1,000 ML 100 ML IV (12:59)
--- NOTE | 2018-11-12 13:10 | P.HP_ITS ---
History of Present Illness Chief complaint: Pain in rt side and groin Patient History Medical History (Updated 11/10/18 @ 13:02 by Jesus Manuel Mckay MD) Healthy adult (Acute) Obesity (Acute) Surgical History No pertinent past surgical history (Acute) Social History household members: spouse Smoking Status: Never smoker alcohol intake: never Family & Social History Social History: household members spouse Prior Living Arrangements House Safety & Behavioral: Feels Safe in Current Yes Environment Been Physically Hurt or No Threatened By a Person Suicidal Ideation Description None Suicide Plan Description No Plan Tobacco & Substance use: Smoking Status Never smoker alcohol intake never alcohol intake frequency holiday/special occasion Substance Use Type does not use Meds Home Medications Medication Instructions Recorded Confirmed Type multivitamin 1 tab PO DAILY 11/10/18 11/10/18 History phentermine 30 mg PO DAILY 11/10/18 11/10/18 History Allergies Allergy/AdvReac Type Severity Reaction Status Date / Time No Known Drug Allergies Allergy Verified 11/10/18 09:46 Exam Vital Signs (past 8 hours): - 11/12/18 05:45 11/12/18 09:00 11/12/18 09:41 Temperature 97.9 F 97.6 F Pulse Rate 89 88 Respiratory Rate 16 16 Blood Pressure 119/63 114/73 Pulse Oximetry 98 97 96 11/12/18 11:55 Temperature 98.4 F Pulse Rate 91 H Respiratory Rate 16 Blood Pressure 120/73 Pulse Oximetry 100 Oxygen Delivery Method Room Air Oxygen Flow Rate 0 Narrative Exam Narrative: Pleasant cooperative patient no apparent distress. Lungs are clear to auscultation. No rales or rhonchi. Heart regular rate and rhythm no murmur gallop. Abdomen is soft nontender without mass. No obvious hernias. P atient is alert and oriented x3. Objective Labs Result Diagrams: 11/12/18 05:15 11/12/18 05:15 Labs: Laboratory Results - last 24 hr 11/12/18 11/12/18 05:15 05:15 WBC 11.2 H RBC 3.68 L Hgb 10.8 L Hct 31.5 L MCV 85.4 MCH 29.3 MCHC 34.3 RDW 13.9 Plt Count 153 Neut % (Auto) 79.1 H Lymph % (Auto) 13.8 L [place] % (Auto) 6.2 Eos % (Auto) 0.5 L Baso % (Auto) 0.4 Neut # (Auto) 8900 H Lymph # (Auto) 1600 [place] # (Auto) 700 Eos # (Auto) 100 Baso # (Auto) 0 Sodium 139 Potassium 3.7 Chloride 108 H Carbon Dioxide 27 BUN 11 Creatinine 0.60 Estimated GFR > 60.0 BUN/Creatinine Ratio 18.3 Glucose 96 Calcium 7.9 L Magnesium 2.1 Assessment & Plan Assessment & Plan narrative: The patient for a screening colonoscopy. I have discussed the procedure with them. Risks of bleeding, perforation which would necessitate major operation, failure to find remove all lesions, the potential tattoo were all discussed. All questions were answered. They wished to proceed.
--- NOTE | 2018-11-12 13:10 | CM.DPC ---
DCP: continued: EMR reviewed and met now with pt as planned. Introduced self and role. Pt is found sitting up in bed, looking comfortable. She had difficulty last time with nausea and finding appropriate pain management (pt does not want to use opiates if possible/see MAZIN Russo's note of last evening). Pt clarifies that her [employer] insurance is her primary. The [employer] is her 's insurance and is a second payer for her. (discussed with UR MAZIN Gordon). Pt is functionally independent at baseline. 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 She is aware that she will likely be here a few days as she recovers and that DCPlanning team will be following to help with any d/c needs that may arise (? IV antibiotics at d/c). She is waiting to see Dr. Geronimo today and in meantime is focusing on using IS under MAZIN Bowen's guidance. P: follow prn for d/c needs...anticipate home setting when pt stable for same.
--- NOTE | 2018-11-12 14:12 | P.PN_ITS ---
Subjective Date Patient Seen: 11/12/18 Time Patient Seen: 13:39 Interval history: The patient is a woman post laparoscopic appendectomy for perforated appendix. She says she is feeling better. Less pain. Just had a bowel movement of moderate size. It was soft. On clear liquids but does not want to advance. Exam Vital Signs (past 8 hours): - 11/12/18 09:00 11/12/18 09:41 11/12/18 11:55 Temperature 97.6 F 98.4 F Pulse Rate 88 91 H Respiratory Rate 16 16 Blood Pressure 114/73 120/73 Pulse Oximetry 97 96 100 Oxygen Delivery Method Room Air Oxygen Flow Rate 0 Narrative Exam Narrative: Lungs are clear. Good respiratory effort. Heart regular rate and rhythm without murmur gallop. Abdomen is soft no unusual tenderness. Drains are intact. Draining clear serosanguineous fluid. Objective Labs Result Diagrams: 11/12/18 05:15 11/12/18 05:15 Labs: Laboratory Results - last 24 hr 11/12/18 11/12/18 05:15 05:15 WBC 11.2 H RBC 3.68 L Hgb 10.8 L Hct 31.5 L MCV 85.4 MCH 29.3 MCHC 34.3 RDW 13.9 Plt Count 153 Neut % (Auto) 79.1 H Lymph % (Auto) 13.8 L [place] % (Auto) 6.2 Eos % (Auto) 0.5 L Baso % (Auto) 0.4 Neut # (Auto) 8900 H Lymph # (Auto) 1600 [place] # (Auto) 700 Eos # (Auto) 100 Baso # (Auto) 0 Sodium 139 Potassium 3.7 Chloride 108 H Carbon Dioxide 27 BUN 11 Creatinine 0.60 Estimated GFR > 60.0 BUN/Creatinine Ratio 18.3 Glucose 96 Calcium 7.9 L Magnesium 2.1 Assessment & Plan Post-op Postoperative Procedures Operation Date: 11/10/18 16:00 Actual Procedures Side Surgeon p Laparoscopic Appendectomy with abdominal washout Not Applicable Jesus Manuel Mckay MD Postoperative day: 2 Postoperative status: doing well Postoperative plan narrative: Encouraged to ambulate. Keep using her incentive spirometer. She is up to about 1500 cc now. Encouraged her to keep going forward. Drains have cleared. They are no longer cloudy. Continue to leave [facility] in place. Continue broad-spectrum antibiotics and DVT prophylaxis.
[2018-11-12] MEDS: DEXTROSE 5%-0.9% NS 1,000 ML 84 ML IV (14:47)
[2018-11-12] MEDS: ONDANSETRON 4 MG/2 ML INJ IV (21:57)
[2018-11-12] MEDS: GABAPENTIN 600 MG TABLET PO (21:57)
[2018-11-13] VITALS (9 sets, daily range): BP systolic 120–147; BP diastolic 66–83; PULSE 82–88; RESP 16–18; TEMP 36.6–36.9; O2SAT 96–100
[2018-11-13] MEDS: ACETAMINOPHEN 325 MG TABLET 650 MG PO ×5 (00:04→23:43)
[2018-11-13] MEDS: DEXTROSE 5%-0.9% NS 1,000 ML 84 ML IV ×2 (03:26→19:35)
[2018-11-13] MEDS: metroNIDAZOLE 500 MG/100 ML PIGGYBACK 100 MG IV ×3 (04:22→19:36)
[2018-11-13] MEDS: HEPARIN 5,000 UNIT/ML VIAL 5000 UNIT SUBCUT ×3 (06:20→21:25)
--- NOTE | 2018-11-13 06:35 | PC.NURSE ---
Pt has weight discrepancy. Admit weight 76.6, now 80.2. Lungs sounds clear, VSS, no signs of edema. Pt only having moderate abdominal pain 2-4/10. Pt voiding by herself and some voids may not be measured. Still has D5 NS at 84ml/hr.
--- NOTE | 2018-11-13 09:08 | PC.NURSE ---
Addendum entered by Asia Banuelos R.N. 11/13/18 13:43: After eating some chicken noodle soup for lunch patient reports feeling actually a little better after I ate something, it made me feel kind of hungry! Medicated with scheduled Tylenol for 2/10 abd pain. Discussed shower, but we have to wait at least until IV abx are complete. She understands it may not happen before then end of this shift. She's resting quietly in bed visiting with her , denies needs at this time. Call light in reach. Addendum entered by Asia Banuelos R.N. 11/13/18 10:48: Alert and oriented X3. Denies nausea. Not much appetite for clear liquids. New MD order to advance to full liquids for lunch. Abd dressings C/D/I. PUNEET drains (2) patent to compression w/ scant sero-sanguinous drainage in bulbs. Reports minimal abd pain (2/10 at rest, 4/10 with activity) and states it's well-managed with scheduled Tylenol. VSS, afebrile. Voiding WNL. IVF per orders, site in L AC WNL. Up in room indep, gait steady. Encouraged coughing, deep breathing and ongoing IS use. Encouraged to ambulate halls at least a few times a day. This narrative writer spoke w/ MD Geronimo re: shower order. He said to remove dressings before shower and place new dressings afterwards. Will enter as order. Patient able to make needs known and calls appropriately. Light in reach. Original Note: Shift summary: Resting quietly in bed with eyes closed. Respirations regular and unlabored. No s/sx distress or discomfort. FLACC score 0. VSS, afebrile. IVF per orders, site in L AC WNL. Will allow to sleep and complete full assessment when awake. Call light in reach. Indep/SBA for mobility, calls appropriately.
--- NOTE | 2018-11-13 10:19 | PM.PNPO.1 ---
Subjective Date Patient Seen: 11/13/18 Time Patient Seen: 10:10 Interval history: Patient feels better than yesterday. Has had bowel movements. Passing flatus. Less abdominal pain. Still has a little catch in her side when she takes a deep breath. Exam Vital Signs (past 8 hours): - 11/13/18 06:34 11/13/18 08:00 11/13/18 08:47 Temperature 97.9 F 98.1 F Pulse Rate 88 87 Respiratory Rate 16 16 Blood Pressure 123/66 120/78 Pulse Oximetry 98 97 97 Oxygen Delivery Method Room Air Oxygen Flow Rate 0 Narrative Exam Narrative: Co Operative in no apparent distress. Lungs are clear to auscultation. Decreased breath sounds right base. Abdomen is less distended and very soft. No unusual tenderness. Drains are intact. Draining clear serosanguineous fluid. Objective Labs Result Diagrams: 11/12/18 05:15 11/12/18 05:15 Assessment & Plan Post-op Postoperative Procedures Operation Date: 11/10/18 16:00 Actual Procedures Side Surgeon p Laparoscopic Appendectomy with abdominal washout Not Applicable Jesus Manuel Mckay MD Postoperative day: 3 Postoperative status: doing well Postoperative plan narrative: Continued drains. May be able to remove the near future. We will advance her diet tomorrow morning to full liquid. She may shower today. Continue DVT prophylaxis. Labs in the morning.
[2018-11-13] MEDS: LACTOBACILLUS ACIDOPHILUS TABLET 1 EACH PO ×2 (11:58→17:16)
[2018-11-13] MEDS: CEFTRIAXONE 2 GM/50 ML FROZ.PIGGY IV (13:10)
[2018-11-13] MEDS: GABAPENTIN 600 MG TABLET PO (21:25)
[2018-11-14] VITALS (7 sets, daily range): BP systolic 122–135; BP diastolic 45–81; PULSE 74–89; RESP 15–16; TEMP 36.5–37.1; O2SAT 98–100
[2018-11-14] MEDS: metroNIDAZOLE 500 MG/100 ML PIGGYBACK 100 MG IV ×2 (03:27→12:53)
[2018-11-14 05:20] LABS: Add Manual Diff / Slide Review NO; Basophils Absolute Auto 100 /uL (0-100); Basophils Percent Auto 0.9 % (0-2); Eosinophils Absolute Auto 300 /uL (0-450); Eosinophils Percent Auto 3.3 % (2-4); Hematocrit 33.7 % (36-46); Hemoglobin 11.8 g/dL (12.0-16.0); Lymphocytes Absolute Auto 1600 /uL (1100-4500); Lymphocytes Percent Auto 19.3 % (25-40); Mean Corpuscular Hemoglobin 29.7 PG (26-34); Mean Corpuscular Volume 84.9 fL (80-100); Monocytes Absolute Auto 700 /uL (0-900); Neutrophils Absolute Auto 5800 /uL (1500-7000); Neutrophils Percent Auto 68.5 % (50-75); Platelet Count 188 X10^3/uL (150-400); Red Blood Cell Count 3.97 X10^6/uL (4.0-5.2); Red Cell Distribution Width 13.7 % (11.6-14.8); White Blood Cell Count 8.5 X10^3/uL (4.5-11.0)
[2018-11-14] MEDS: ACETAMINOPHEN 325 MG TABLET 650 MG PO ×2 (06:14→12:53)
[2018-11-14] MEDS: HEPARIN 5,000 UNIT/ML VIAL 5000 UNIT SUBCUT (06:15)
[2018-11-14] MEDS: LACTOBACILLUS ACIDOPHILUS TABLET 1 EACH PO ×2 (09:15→12:53)
[2018-11-14] MEDS: DEXTROSE 5%-0.9% NS 1,000 ML 25 ML IV (09:17)
--- NOTE | 2018-11-14 09:47 | PC.NURSE ---
Addendum entered by Asia Banuelos R.N. 11/14/18 14:39: Discharge: Currently getting second of 2 IV abx doses prior to discharge. Reviewed home med list, new prescriptions, discharge instructions and PUNEET care thoroughly with patient. Instructed how to care for drain, instructed to empty at least 2X day, more if needed, and record the amount Q24H to bring to follow up appt. Instructed to keep incisions clean and dry, sent with supplies to cover PUNEET site. She understands that it's ok to shower, no soaking or swimming. No lifting >15 lbs until cleared by MD. Scripts called in to [facility]. Patient finishing up her IV abx and then may want to shower before she goes home. Will plan to place new dressing after she showers. Verbalized understanding of all d/c instructions and stated no further questions. Understands to call MD w/ s/sx infection or any other concerns that arise. F/U appt for next Wednesday. Original Note: Shift summary: Awake and alert, oriented X3. Denies N/V. Abd pain well-controlled with scheduled Tylenol. Abd dressings C/D/I. 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 Pelvic PUNEET compressed with scant serosanguinous drainage noted. Denies fever/chills. Abd soft. Passing flatus, passing loose stools (held am dose of Miralax). IV turned down to TKO per discussion with MD, anticipate tape recorder repairer shortly. Diet advanced to regular for lunch. Up in room independently, gait steady. Per MD, possible D/C home this afternoon. Patient is able to make needs known and calls appropriately. Light in reach.
--- NOTE | 2018-11-14 12:40 | PM.DS.1 ---
History of Present Illness Chief complaint: Pain in rt side and groin Narrative: 53-year-old generally healthy female presents to the emergency department with progressive right lower quadrant pain. Pain began yesterday afternoon with associated anorexia and fatigue. Initially the pain felt crampy and generalized but later moved to the right lower quadrant. The pain waxed and waned in a colicky fashion was worsened with movement and improved by lying completely still. Given its persistence this morning patient elected to present to the emergency department. She has not had nausea or vomiting. Patient has never had a colonoscopy No family history of colon or rectal cancer Discharge Providers Date of admission: 11/10/18 12:15 Discharge Date: 11/14/18 Primary care physician: Boston Zayas DO Discharge provider: Jesus Manuel Mckay Summary Discharge Diagnosis: acute perforated appendicitis fecal contamination of abdomen Hospital Course: 53 yo woman - generally healthy presented with acute appendicitis and early sepsis. Was taken to OR emergently for lap appendectomy and wash out. Drains placed. Post op did well with resolution of septic physiology. By POD4 WBC had normalized and pt was tolerating a general diet, ambulating independently, with good pain control. Her pelvic drain continued with moderate outputs - 40ml in last 24hrs and plan is to discharge with drain in place - will remove next week in clinic. Will complete an additional week of PO abx for total of 12days Status at Discharge Cognitive/behavioral status at discharge: oriented Functional status at discharge: independent ambulation Overall status at discharge: patient is progressing back to baseline Time Spent with Patient Less than 30 minutes Exam Vital Signs (past 8 hours): - 11/14/18 06:03 11/14/18 08:00 11/14/18 09:09 Temperature 98.2 F 97.7 F Pulse Rate 85 74 Respiratory Rate 16 15 Blood Pressure 122/76 135/81 Pulse Oximetry 98 100 99 11/14/18 11:18 Temperature 98.2 F Pulse Rate 77 Respiratory Rate 16 Blood Pressure 133/45 L Pulse Oximetry 100 Oxygen Delivery Method Room Air Oxygen Flow Rate 0 Objective Labs Result Diagrams: 11/14/18 05:06 11/12/18 05:15 Labs: Laboratory Results - last 24 hr 11/14/18 05:06 WBC 8.5 RBC 3.97 L Hgb 11.8 L Hct 33.7 L MCV 84.9 MCH 29.7 MCHC 35.0 RDW 13.7 Plt Count 188 Neut % (Auto) 68.5 Lymph % (Auto) 19.3 L [place] % (Auto) 8.0 Eos % (Auto) 3.3 Baso % (Auto) 0.9 Neut # (Auto) 5800 Lymph # (Auto) 1600 [place] # (Auto) 700 Eos # (Auto) 300 Baso # (Auto) 100 Discharge Plan Discharge Plan Patient Disposition: Home Discharge Med Rec/Prescriptions Prescriptions: New acetaminophen 325 mg Tablet 650 mg PO Q6HR Qty: 40 RF: 0 Bacid (L. acidophilus) 1 billion cell- 250 mg Tablet 1 ea PO TIDWM Qty: 60 RF: 0 polyethylene glycol 3350 17 gram Powder In Packet 17 gm PO DAILY Qty: 10 RF: 0 oxycodone 5 mg Tablet 5 mg PO Q4HR PRN (Reason: Pain, Moderate (4-6)) Qty: 10 RF: 0 amoxicillin-pot clavulanate 500-125 mg tablet 1 tab PO TID Qty: 21 RF: 0 Continued multivitamin Tablet 1 tab PO DAILY RF: 0 Discontinued phentermine 30 mg Capsule 30 mg PO DAILY RF: 0 Follow up/Referrals: Boston Zayas DO [Primary Care Provider] - Provider Discharge Instructions Diet: Diet as Tolerated Activity: normal activity OK. OK to shower, no soaking in water for 2 weeks. No lifting over 15lbs for 4 weeks. OK to shower with your drain in place. Other treatments: empty your drain 2 times a day or whenever becomes full - keep a log for each 24hr period how much is draining out. Visit Report/Discharge Packet Instructions: DI for an Appendectomy, DI for Laparoscopy, DI for Naman-Estrada Drains, How to Use and Care for Your Naman-Estrada Drain Stand Alone Forms: Surgery Discharge Discharge Data Primary Care Provider: Boston Zayas Attending Provider: Jesus Manuel Mckay Admit Date/Time: 11/10/18 12:15
--- NOTE | 2018-11-14 12:46 | CM.DPC ---
DCP Cont: Patient is to be discharged home today. Confirmed with nurse, Asia, that patient will be going home on oral antibiotics. She is able to tolerate her regular diet, and has been ambulating independently. P: Patient is to be discharged home today on oral antibiotics. Marilee Becerra RN/Demand Manager
[2018-11-14] MEDS: CEFTRIAXONE 2 GM/50 ML FROZ.PIGGY IV (14:28)
== END 2018-11-14 16:42 | disposition home or self-care (01) | DRG 340 ==
LOC: ED 12:10 → AC 12:19
PROVIDERS: Specialist; Admitting Provider Surgery; Emergency Provider Emergency Medicine; PCP Family Medicine; Visit Provider Surgery
PROC: 0DTJ4ZZ Resection of Appendix, Percutaneous Endoscopic Approach (ICD-10-PCS; CPT 44970; principal; 2018-11-10 16:00)
DX: K35.32 Acute appendicitis with perforation, localized peritonitis, and gangrene, without abscess (principal); R00.0 Tachycardia, unspecified
CPT/HCPCS: 36415; 36591; 44970; 71045; 74177; 80048; 80053; 83735; 85025; 93005; 94762; 96361; 96365; 96366; 96375; 99222; 99284; 99285; J0696; J0780; J1100; J1644; J1885; J2250; J2270; J2405; J2704; J3010; J3475